=== PATIENT | male | born 1965 | race Caucasian/White ===

== ENCOUNTER 2022-07-11 12:00 | Emergency (ER) | payer OTHER ==
[~2022-07-11] VITALS: Ht 182.9 cm; Wt 75.7 kg
[2022-07-11] MEDS ORDERED: KETOROLAC TROMETHAMINE 15 MG/ML VIAL ONE (12:36)
[2022-07-11 12:39] LABS: BASOPHILS # (AUTO) 0.1 K/uL (0.0-0.2); BASOPHILS % (AUTO) 0.7 % (0.0-2.0); EOSINOPHILS % (AUTO) 1.7 % (0.0-6.0); HEMATOCRIT 32 % (39-51); HEMOGLOBIN 10.4 g/dL (13.5-17.5); LYMPHOCYTES # (AUTO) 1.9 K/uL (0.8-4.8); LYMPHOCYTES % (AUTO) 20.4 % (20.0-44.0); MEAN CORPUSCULAR HGB CONC 32 g/dl (31.0-36.0); MEAN CORPUSCULAR VOLUME 86 fL (80-96); MONOCYTES # (AUTO) 0.7 K/uL (0.1-1.30); MONOCYTES % (AUTO) 7.1 % (2.0-12.0); NEUTROPHILS # (AUTO) 6.7 K/uL (1.8-8.9); NEUTROPHILS % (AUTO) 70.1 % (43.0-81.0); PLATELET COUNT (AUTO) 531 K/uL (150-450); RED BLOOD CELL COUNT(AUTO) 3.76 MIL/uL (4.5-6.0); WHITE BLOOD COUNT (AUTO) 9.5 K/uL (4.3-11.0)
--- NOTE | 2022-07-11 12:46 | NUR ---
PT UNABLE TO PROVIDE URINE SPECIMEN AT THIS TIME
[2022-07-11 12:48] LABS: CALCIUM, SERUM 8.6 mg/dL (8.5-10.1); CARBON DIOXIDE 28 mmol/L (21-32); CHLORIDE 101 mmol/L (98-107); CREATININE 1.1 mg/dL (0.6-1.3); POTASSIUM 4.1 mmol/L (3.5-5.1); SODIUM SERUM 134 mmol/L (136-145); UREA NITROGEN, BLOOD 29 mg/dL (7-18)
--- NOTE | 2022-07-11 12:55 | NUR ---
URINE SPECIMEN COLLECTED AND SENT TO LAB.
[2022-07-11] MEDS ORDERED: IV NS 0.9% 1,000 ML IV ONE (13:00)
[2022-07-11] MEDS ORDERED: KETOROLAC TROMETHAMINE INJ 30 MG/ML VIAL IV ONE ×2 (13:00→16:30)
[2022-07-11 13:02] LABS: GLUCOSE 368 mg/dL (74-106)
--- NOTE | 2022-07-11 13:03 | NUR ---
[id number], BUN-29; DR SIU MADE AWARE
[2022-07-11] MEDS ORDERED: MAGN400O6 PO (13:22)
[2022-07-11] MEDS ORDERED: LORA-259 PO (13:22)
[2022-07-11] MEDS ORDERED: DOCU-141 PO (13:22)
[2022-07-11] MEDS ORDERED: LIDO1ADH82 TP (13:22)
[2022-07-11] MEDS ORDERED: QUET25TA PO (13:22)
[2022-07-11] MEDS ORDERED: ASCO-352 PO (13:22)
[2022-07-11] MEDS ORDERED: PREG25CA51 PO (13:22)
[2022-07-11] MEDS ORDERED: BISA10SU11 RC (13:22)
[2022-07-11] MEDS ORDERED: INSU100V7 SQ (13:22)
[2022-07-11] MEDS ORDERED: VANC1VIA34 IV (13:22)
[2022-07-11] MEDS ORDERED: INSU100V3 SQ ×2 (13:22)
[2022-07-11] MEDS ORDERED: HYDR-4303 PO (13:22)
[2022-07-11] MEDS ORDERED: MORP15TA PO (13:22)
[2022-07-11] MEDS ORDERED: MULT-447 PO (13:22)
[2022-07-11] MEDS ORDERED: BENZ200C53 PO (13:22)
[2022-07-11] MEDS ORDERED: DOXY100T2 PO (13:22)
[2022-07-11] MEDS ORDERED: SENN-18 PO (13:22)
[2022-07-11] MEDS ORDERED: CEFT1VIA15 IV (13:22)
[2022-07-11] MEDS ORDERED: NA P133E RC (13:22)
[2022-07-11 13:37] LABS: BILIRUBIN,URINE NEGATIVE (NEGATIVE); COLOR,URINE YELLOW (YELLOW); LEUKOCYTE ESTERASE ,URINE NEGATIVE (NEGATIVE); NITRITE, URINE NEGATIVE (NEGATIVE); PH,URINE 5.5 (5.0-8.0); PROTEIN,URINE NEGATIVE (NEGATIVE); UGLUCOSE 3+ mg/dL (NEGATIVE); UROBILINOGEN,URINE 0.2 EU/dL (0.2)
[2022-07-11] MEDS ORDERED: POTASSIUM CHLORIDE 20 MEQ TAB.PRT.SR PO ONE ×2 (13:41→14:00)
[2022-07-11] MEDS ORDERED: INSULIN REGULAR, HUMAN 100 UNIT/ML 10 ML VIAL ONE (13:42)
[2022-07-11 13:56] LABS: RBC,URINE 0-2 /HPF (0-2)
[2022-07-11 13:57] LABS: BACTERIA,URINE None seen /HPF (None Seen); SQUAMOUS EPITHELIAL CELL,UR Few /HPF (None Seen); WBC,URINE 0-2 /HPF (0-3); YEAST,URINE Rare /HPF (None Seen)
[2022-07-11] MEDS ORDERED: INSULIN REGULAR, HUMAN 100 UNIT/ML 10 ML VIAL SQ ONE (14:00)
--- NOTE | 2022-07-11 14:33 | NUR ---
PT REFUSES LAB AND VITAL SIGNS UNTIL HE EATS
--- NOTE | 2022-07-11 14:47 | NUR ---
PT REFUSES SANDWICH, NO HOT FOOD AVAILABLE FROM KITCHEN UNTIL 5PM. PT CONTINUE TO REFUSE VITAL SIGNS.
--- NOTE | 2022-07-11 15:23 | NUR ---
TROPONIN 2ND DRAW DONE; BLOOD SPECIMEN OBTAINED BY PHLEB AT BEDSIDE
[2022-07-11 15:42] LABS: CALCIUM, SERUM 8.3 mg/dL (8.5-10.1); POTASSIUM 4.2 mmol/L (3.5-5.1)
--- NOTE | 2022-07-11 16:17 | NUR ---
CALLED [facility] FOR TRANSPORT ETA 90 MINS.
[2022-07-11] MEDS ORDERED: KETOROLAC TROMETHAMINE INJ 30 MG/ML VIAL ONE (16:18)
--- NOTE | 2022-07-11 16:29 | NUR ---
REPORT GIVEN TO [facility].
--- NOTE | 2022-07-11 18:23 | NUR ---
PT DISCHARGED BACK TO [facility], PICKED UP BY EMT. BOTH IV LINES REMOVED.
[2022-07-11 18:24] VITALS: BP 126/69
== END 2022-07-11 18:25 ==
LOC: ER 12:06
DX: E11.65 Type 2 diabetes mellitus with hyperglycemia (principal); R07.89 Other chest pain; I10 Essential (primary) hypertension; Z98.890 Other specified postprocedural states; Z88.0 Allergy status to penicillin; Z79.899 Other long term (current) drug therapy; Z79.4 Long term (current) use of insulin
CPT/HCPCS: 99285; 96374; 71045; 96361; 96372; 93005; 96376; 85025; 80048 ×2; 82010; 81001; 36415; 84484 ×2; 85730; 83880; 82962; J1815; J1885 ×2; J7030